=== PATIENT | male | born 1970 | race Caucasian/White ===

== ENCOUNTER 2018-01-30 23:22 | Emergency (ER) | payer OTHER ==
[~2018-01-30] VITALS: Ht 170.2 cm; Wt 108.9 kg
[2018-01-30] MEDS ORDERED: NOVOLIN N100 UNIT/1 SUBQ (23:35)
[2018-01-30] MEDS ORDERED: METFORMIN HCL500 MG PO (23:35)
[2018-01-30] MEDS ORDERED: AMARYL4 MG PO (23:35)
[2018-01-30] MEDS ORDERED: FISH OIL 1,001000 M2 PO (23:36)
[2018-01-30] MEDS ORDERED: VITAMIN D5000 UNIT PO (23:37)
[2018-01-31 00:17] LABS: ABSOLUTE EOSINOPHILS 0.2 thou/uL (0.0-0.7); ABSOLUTE LYMPHOCYTES 2.8 thou/uL (0.8-5.3); ABSOLUTE MONOCYTES 0.5 thou/uL (0.0-1.2); ABSOLUTE NEUTROPHILS 2.7 thou/uL (1.6-8.1); BASOPHILS 0.6 %; EOSINOPHILS 3.6 %; HEMATOCRIT 44.9 % (42.0-52.0); HEMOGLOBIN 15.6 gm/dL (14.0-18.0); LYMPHOCYTES 44.3 %; MCH 30.4 pg (26.0-34.0); MCHC 34.6 g/dL (28.0-37.0); MCV 87.9 fL (80.0-100.0); MONOCYTES 8.3 %; MPV 8.7 fl. (7.2-11.1); NUCLEATED RBCS 0 /100WBC; PLATELET COUNT* 156 thou/uL (150-400); POLYS 43.2 %; RBC 5.11 mil/uL (4.50-6.00); RDW-CV 13.6 % (10.5-14.5); WBC 6.3 thou/uL (4.0-11.0)
[2018-01-31 00:21] LABS: CREATININE 0.9 mg/dL (0.6-1.3)
[2018-01-31 00:25] LABS: ALBUMIN 3.5 g/dL (3.4-5.0); TOTAL BILIRUBIN 0.4 mg/dL (<0.1-1.0); TOTAL PROTEIN 7.4 g/dL (6.4-8.2)
[2018-01-31] MEDS ORDERED: PRINIVIL20 M1 PO (01:19)
[2018-01-31] MEDS ORDERED: FLEXERIL PO (01:38)
[2018-01-31 01:48] VITALS: BP 153/79
== END 2018-01-31 01:51 | disposition home or self-care (01) ==
LOC: M.ERS 23:22
PROVIDERS: Physician Assistant
DX: M54.5 Low back pain (principal); E11.9 Type 2 diabetes mellitus without complications; I10 Essential (primary) hypertension; Z95.5 Presence of coronary angioplasty implant and graft